=== PATIENT | female | born 1935 | race African-American/Black ===

== ENCOUNTER 2023-08-18 11:52 | Inpatient (IN) | payer OTHER ==
[2023-08-18] MEDS ORDERED: ACETAMINOPHEN INJECTION 100 ML IVPB ONE (12:57)
[2023-08-18] MEDS: SODIUM CHLORIDE 0.9% 500 ML INFUS.BAG IV ONE (13:01)
[2023-08-18] MEDS: ACETAMINOPHEN 1000 MG/100 ML BAG IVPB ONE (13:01)
[2023-08-18 13:02] LABS: HEMATOCRIT 30.9 % (32.4-45.2); HEMOGLOBIN 10.6 GM/dL (10.7-15.3); MCH 32.1 pg (25.7-33.7); MCHC 34.4 g/dl (32.0-36.0); MEAN CELL VOLUME 93.3 fl (80-96); MEAN PLT VOLUME 8.5 fl (7.5-11.1); PLATELET COUNT 161 10^3/uL (134-434); RBC 3.31 M/mm3 (3.60-5.2); RDW 14.1 % (11.6-15.6); WHITE BLOOD COUNT 10.9 K/mm3 (4.0-10.0)
[2023-08-18 13:10] LABS: INR 1.23 (0.83-1.09); PROTHROMBIN TIME (PATIENT) 14.2 SEC (9.7-13.0)
[2023-08-18 13:12] LABS: ACTIVATED PTT 29.4 SECONDS (25.2-36.5)
[2023-08-18 13:20] LABS: POTASSIUM 4.4 mmol/L (3.5-5.1)
[2023-08-18 13:22] LABS: ALBUMIN 3.1 g/dl (3.4-5.0); BLOOD UREA NITROGEN 24.6 mg/dL (7-18); CALCIUM 9.3 mg/dL (8.5-10.1)
[2023-08-18 13:26] LABS: CREATININE 1.5 mg/dL (0.55-1.3)
[2023-08-18 13:28] LABS: BILIRUBIN,TOTAL 0.7 mg/dL (0.2-1); TOT PROT 7.2 g/dl (6.4-8.2)
[2023-08-18 13:30] LABS: N-TERMINAL BNP 2955.1 pg/ml (5-450)
[2023-08-18] MEDS ORDERED: CEFTRIAXONE 1 GM/50 ML BAG ONE (13:49)
[2023-08-18 13:59] LABS: ANISOCYTOSIS 0; HELMET CELLS 0; HOWELL-JOLLY BODIES 0; MACROCYTOSIS 0; OVALOCYTE 0; ROULEAU 0; SICKELED CELLS 0; TARGET CELLS 0; TEAR DROP CELLS 0; TOXIC GRANULATION 0
[2023-08-18] MEDS ORDERED: AZITHROMYCIN IVPB 500 MG/250 ML BAG IVPB ONE (14:11)
[2023-08-18] MEDS: AZITHROMYCIN IVPB 500 MG in DEXTROSE 5%-WATER - 250 ML IVPB ONE (14:20)
[2023-08-18] MEDS ORDERED: OSELTAMIVIR PHOSPHATE 75 MG CAPSULE ONE (14:23)
[2023-08-18] MEDS: OSELTAMIVIR PHOSPHATE 75 MG CAPSULE PO ONE (14:25)
[2023-08-18 18:19] VITALS: BMI 21.9
[2023-08-18] MEDS: ACETAMINOPHEN 325 MG TABLET (FP) PO ONE (21:38)
[2023-08-18] MEDS ORDERED: OSELTAMIVIR PHOSPHATE 45 MG CAPSULE PO SCH (22:00)
[2023-08-19] MEDS: FUROSEMIDE 40 MG/4 ML INJECTABLE VIAL IVPUSH SCH (09:04)
[2023-08-19] MEDS: CEFTRIAXONE 1 GM in DEXTROSE 5%-WATER - 50 ML IVPB SCH (09:04)
[2023-08-19] MEDS: ACETAMINOPHEN 325 MG TABLET (FP) PO PRN (09:04)
[2023-08-19] MEDS: ENOXAPARIN NA (PORCINE) 30 MG/0.3 ML DISP.SYRIN SQ SCH (09:04)
[2023-08-19] MEDS: OSELTAMIVIR PHOSPHATE 30 MG CAPSULE PO SCH ×2 (09:05→21:43)
[2023-08-19 09:16] LABS: HEMATOCRIT 30.8 % (32.4-45.2); HEMOGLOBIN 10.3 GM/dL (10.7-15.3); MCH 31.2 pg (25.7-33.7); MCHC 33.3 g/dl (32.0-36.0); MEAN CELL VOLUME 93.7 fl (80-96); MEAN PLT VOLUME 10.3 fl (7.5-11.1); PLATELET COUNT 155 10^3/uL (134-434); RBC 3.29 M/mm3 (3.60-5.2); RDW 14.2 % (11.6-15.6); WHITE BLOOD COUNT 13.1 K/mm3 (4.0-10.0)
[2023-08-19 09:46] LABS: POTASSIUM 4.7 mmol/L (3.5-5.1)
[2023-08-19] MEDS: AZITHROMYCIN IVPB 250 MG in DEXTROSE 5%-WATER - 250 ML IVPB SCH (09:53)
[2023-08-19 10:00] LABS: ALBUMIN 2.7 g/dl (3.4-5.0); BLOOD UREA NITROGEN 31.8 mg/dL (7-18); CALCIUM 8.5 mg/dL (8.5-10.1)
[2023-08-19] MEDS ORDERED: ENOXAPARIN NA (PORCINE) 40 MG/0.4 ML DISP.SYRIN SQ SCH ×2 (10:00)
[2023-08-19 10:02] LABS: CREATININE 1.3 mg/dL (0.55-1.3)
[2023-08-19 10:04] LABS: BILIRUBIN,TOTAL 0.7 mg/dL (0.2-1); TOT PROT 6.8 g/dl (6.4-8.2)
[2023-08-19 10:20] LABS: ANISOCYTOSIS 0; MACROCYTOSIS 0
[2023-08-20 08:54] LABS: HEMATOCRIT 29.8 % (32.4-45.2); HEMOGLOBIN 10.2 GM/dL (10.7-15.3); MCH 31.3 pg (25.7-33.7); MEAN CELL VOLUME 91.9 fl (80-96); MEAN PLT VOLUME 10.3 fl (7.5-11.1); PLATELET COUNT 187 10^3/uL (134-434); RBC 3.25 M/mm3 (3.60-5.2); RDW 14.2 % (11.6-15.6); WHITE BLOOD COUNT 17.1 K/mm3 (4.0-10.0)
[2023-08-20 08:56] LABS: POTASSIUM 4.1 mmol/L (3.5-5.1)
[2023-08-20 09:04] LABS: CALCIUM 9.1 mg/dL (8.5-10.1)
[2023-08-20 09:06] LABS: ALBUMIN 2.6 g/dl (3.4-5.0); BLOOD UREA NITROGEN 24.4 mg/dL (7-18)
[2023-08-20 09:11] LABS: BILIRUBIN,TOTAL 0.5 mg/dL (0.2-1)
[2023-08-20 11:05] LABS: ANISOCYTOSIS 0; MACROCYTOSIS 0
[2023-08-20] MEDS: PIPERACILLIN/TAZOB 4.5 GM 4.5 GM in DEXTROSE 5%-WATER 100 ML IVPB SCH (18:00)
[2023-08-21 09:03] LABS: HEMOGLOBIN 10.2 GM/dL (10.7-15.3); MCH 31.5 pg (25.7-33.7); MCHC 34.2 g/dl (32.0-36.0); MEAN CELL VOLUME 92.2 fl (80-96); PLATELET COUNT 242 10^3/uL (134-434); RBC 3.25 M/mm3 (3.60-5.2); RDW 14.2 % (11.6-15.6)
[2023-08-21 09:14] LABS: POTASSIUM 3.7 mmol/L (3.5-5.1)
[2023-08-21 09:17] LABS: CALCIUM 9.2 mg/dL (8.5-10.1)
[2023-08-21 09:18] LABS: ALBUMIN 2.6 g/dl (3.4-5.0); BLOOD UREA NITROGEN 21.6 mg/dL (7-18)
[2023-08-21 09:24] LABS: BILIRUBIN,TOTAL 0.5 mg/dL (0.2-1); TOT PROT 7.4 g/dl (6.4-8.2)
[2023-08-21 11:24] LABS: ANISOCYTOSIS 0; MACROCYTOSIS 0
[2023-08-21] MEDS ORDERED: INSULIN ASPART SLIDING SCALE (NOVOLOG) 1 VIAL SQ ONE (11:27)
[2023-08-21] MEDS: ONDANSETRON 4 MG/2 ML VIAL IVPUSH ONE (11:36)
[2023-08-21 17:59] LABS: URINE APPEARANCE CLEAR; URINE BILIRUBIN NEGATIVE (NEGATIVE); URINE COLOR YELLOW; URINE GLUCOSE (UA) NEGATIVE (NEGATIVE); URINE KETONE NEGATIVE (NEGATIVE); URINE LEUK ESTERASE NEGATIVE (NEGATIVE); URINE NITRITE NEGATIVE (NEGATIVE); URINE PROTEIN NEGATIVE (NEGATIVE); URINE UROBILINOGEN 0.2 mg/dL (0.2-1.0)
[2023-08-22 02:30] VITALS: RESP 20
[2023-08-22 13:54] LABS: MAGNESIUM 1.9 mg/dL (1.8-2.4)
[2023-08-22] MEDS ORDERED: PIPERACILLIN/TAZOBACTAM 4.5 GM VIAL IVPB ONE (16:55)
[2023-08-22] MEDS: ACETAMINOPHEN 325 MG TABLET (FP) PO ONE (21:15)
[2023-08-22] MEDS: guaiFENesin 200 MG/10 ML 10 ML UNIT-DOSE CUPS PO PRN (21:33)
[2023-08-23 14:37] LABS: PH,URINE 5.5 (5.0-8.0); URINE APPEARANCE CLEAR; URINE BILIRUBIN NEGATIVE (NEGATIVE); URINE COLOR YELLOW; URINE GLUCOSE (UA) NEGATIVE (NEGATIVE); URINE KETONE NEGATIVE (NEGATIVE); URINE LEUK ESTERASE NEGATIVE (NEGATIVE); URINE NITRITE NEGATIVE (NEGATIVE); URINE PROTEIN NEGATIVE (NEGATIVE); URINE UROBILINOGEN 0.2 mg/dL (0.2-1.0)
[2023-08-23] MEDS: guaiFENesin 200 MG/10 ML 10 ML UNIT-DOSE CUPS PO PRN (21:12)
[2023-08-24 07:30] LABS: POTASSIUM 3.8 mmol/L (3.5-5.1)
[2023-08-24 07:32] LABS: CALCIUM 8.4 mg/dL (8.5-10.1)
[2023-08-24 07:33] LABS: ALBUMIN 2.2 g/dl (3.4-5.0); BLOOD UREA NITROGEN 7.6 mg/dL (7-18)
[2023-08-24 07:36] LABS: CREATININE 0.7 mg/dL (0.55-1.3)
[2023-08-24 07:37] LABS: BILIRUBIN,TOTAL 0.7 mg/dL (0.2-1)
[2023-08-24 07:58] LABS: HEMATOCRIT 26.2 % (32.4-45.2); HEMOGLOBIN 9.3 GM/dL (10.7-15.3); MCH 32.2 pg (25.7-33.7); MCHC 35.5 g/dl (32.0-36.0); MEAN CELL VOLUME 90.6 fl (80-96); MEAN PLT VOLUME 8.4 fl (7.5-11.1); PLATELET COUNT 364 10^3/uL (134-434); RBC 2.89 M/mm3 (3.60-5.2); RDW 14.7 % (11.6-15.6); WHITE BLOOD COUNT 17.8 K/mm3 (4.0-10.0)
[2023-08-24 08:46] LABS: ANISOCYTOSIS 0; MACROCYTOSIS 0
[2023-08-25 15:25] VITALS: BP 148/66; PULSE 96; TEMP 98.2
== END 2023-08-25 06:25 | disposition home or self-care (01) | DRG 193 ==
LOC: JER 11:52 → JERBED 13:47 → J6S 17:54
PROVIDERS: ADMIT Internal Medicine; ATTEND Internal Medicine
DX: J10.00 Influenza due to other identified influenza virus with unspecified type of pneumonia (principal); I50.31 Acute diastolic (congestive) heart failure; J98.59 Other diseases of mediastinum, not elsewhere classified; E87.1 Hypo-osmolality and hyponatremia; N17.9 Acute kidney failure, unspecified; J18.9 Pneumonia, unspecified organism; I25.2 Old myocardial infarction; D64.9 Anemia, unspecified; I25.10 Atherosclerotic heart disease of native coronary artery without angina pectoris; I50.9 Heart failure, unspecified
CPT/HCPCS: 0241U-QW; 36415; 71045-TC-FY; 71260-TC; 76775-TC; 80053; 80061; 81003; 82962; 83036; 83735; 83880; 84443; 84484; 85025; 85610; 85730; 86850; 86900; 86901; 87040; 87070; 87205; 87899; 93005; 93010; 93306-TC; 94010; 97116-GP; 97162-GP; 99285-25; J0131